=== PATIENT | female | born 1970 | race Caucasian/White ===

== ENCOUNTER → 2019-12-11 | Day surgery (SDC) | payer BC, OTHER ==
[2019-12-08 14:38] VITALS: BMI 42.0
--- NOTE | 2019-12-10 20:29 | P.HPOB ---
History of Present Illness H&P Date: 12/10/19 Chief Complaint: Family planning, unsuccessful IUD removal This is a 49-year-old female 8 para 1 who presents for laparoscopic bilateral tubal ligation via fulguration for family planning along with manual IUD removal due to embedded IUD. Patient underwent attempted removal of IUD in the office but was unable to tolerate removal. The IUD strings were visible however the IUD did not easily remove with pulling the strings. She will therefore undergo possible dilation and curettage to remove the IUD along with laparoscopic bilateral tubal ligation with fulguration for family planning. Obstetrical history: . History of 1 delivery and multiple m iscarriages. Gynecologic history: No history of sexual transmitted diseases. Her menses are occurring every 3 weeks and lasting 5-6 days. Social history: She is . She works at [employer]. Review of Systems Constitutional: Reports fatigue, Reports weight gain Eyes: denies blurred vision, denies pain Ears, nose, mouth and throat: Denies headache, Denies sore throat Cardiovascular: Denies chest pain, Denies shortness of breath Respiratory: Denies cough Gastrointestinal: Denies abdominal pain, Denies diarrhea, Denies nausea, Denies vomiting Genitourinary: Reports dysmenorrhea, Denies dysuria, Denies hematuria Musculoskeletal: Denies myalgias Integumentary: Denies pruritus, Denies rash Neurological: Denies numbness, Denies weakness Psychiatric: Reports anxiety, Reports change in libido, Reports depression, Reports difficulty concentrating, Reports irritability Hematologic/Lymphatic: Reports easy bruising Past Medical History Past Medical History: Asthma, Hyperlipidemia Additional Past Medical History / Comment(s): Dx. with asthma at age 32. Hx. of Antiphospholipid Syndrome. States has had no problems with blood clots. History of Any Multi-Drug Resistant Organisms: None Reported Past Surgical History: Section Additional Past Surgical History / Comment(s): D&C's Past Anesthesia/Blood Transfusion Reactions: No Reported Reaction Past Psychological History: Anxiety, Depression Smoking Status: Never smoker Past Alcohol Use History: Occasional Past Drug Use History: None Reported - Past Family History Mother Family Medical History: No Reported History Father Family Medical History: Cancer Additional Family Medical History / Comment(s): Liver Medications and Allergies Home Medications Medication Instructions Recorded Confirmed Type Cholecalciferol [Vitamin D3] 400 unit PO DAILY 12/08/19 12/08/19 History Cyanocobalamin (Vitamin B-12) 1,000 mcg PO DAILY 12/08/19 12/08/19 History [Vitamin B-12] DULoxetine HCL [Cymbalta] 60 mg PO DAILY 12/08/19 12/08/19 History Montelukast [Singulair] 10 mg PO DAILY 12/08/19 12/08/19 History Multivitamins, Thera [Multivitamin 1 tab PO DAILY 12/08/19 12/08/19 History (formulary)] Allergies Allergy/AdvReac Type Severity Reaction Status Date / Time heparin Allergy Rash/Hives Verified 12/08/19 14:26 Exam Osteopathic Statement: *. No significant issues noted on an osteopathic structural exam other than those noted in the History and Physical/Consult. HEENT is within normal limits Heart: Regular rate and rhythm Lungs: Clear to auscultation bilaterally Abdomen: Soft, nontender Pelvic exam: Cervix is visible with IUD strings visible. Uterus is anteverted, nontender, with no adnexal masses or tenderness palpated. Extremities: Negative Homans. Assessment and Plan (1) Encounter for IUD removal Status: Acute Code(s): Z30.432 - ENCOUNTER FOR REMOVAL OF INTRAUTERINE CONTRACEPTIVE DEVICE SNOMED Code(s): 450923601 (2) Family planning Status: Acute Code(s): Z30.09 - ENCOUNTER FOR OTH GENERAL CNSL AND ADVICE ON CONTRACEPTION SNOMED Code(s): 026219813 Plan: Will proceed with IUD removal with possible dilation and curettage to facilitate IUD removal and laparoscopic bilateral tubal ligation via fulguration. I have discussed the risks, benefits, and alternative therapies for the above- mentioned procedure and for both sedation/anesthesia as well as necessary blood products administration, if indicated, as they pertain to this patient. The patient has indicated her understanding and acceptance of the risks and procedures discussed.
[~2019-12-11] MED LIST: BUPIVACAINE (PF) 0.25% 30 ML VIAL SQ ONE; DEXAMETHASONE SOD PHOS (MDV) 100 MG/10 ML VIAL IVP ONE; GLYCOPYRROLATE 0.2 MG/ML 2 ML VIAL ONE; HYDROmorphone 0.5 MG/0.5 ML SYRINGE IVP PRN; IV FLUID CONTINUATION 1,000 ML IV ONE; KETOROLAC 30 MG/ML 1 ML VIAL ONE; LACTATED RINGERS 1,000 ML IV ONE; LACTATED RINGERS 1,000 ML IV SCH; LIDOCAINE 1% (10MG/ML) FOR IV START INTRADERMA PRN; MIDAZOLAM 2 MG/2 ML VIAL ONE; NEOSTIGMINE 1 MG/ML 10 ML VIAL ONE; ONDANSETRON 4 MG/2 ML VIAL IVP ONE; PROPOFOL 10 MG/ML 20 ML VIAL IV ONE; Pre Op ABX Message 1 EACH MISC MISCELLANE ONE; ROCURONIUM BROMIDE 10 MG/ML 5 ML VIAL IV ONE; SCOPOLAMINE 1.5MG/72HR PATCH TRANSDERM ONE; SUCCINYLCHOLINE CHLORIDE 100 MG/5 ML SYR IV ONE; fentaNYL (PF) 50 MCG/ML 2 ML AMP ONE
--- NOTE | 2019-12-11 08:24 | P.OP ---
Date of Procedure: 12/11/19 Preoperative Diagnosis: Family planning Retained IUD Postoperative Diagnosis: Same Procedure(s) Performed: Dilation and curettage with IUD removal Laparoscopic bilateral tubal ligation via fulguration Anesthesia: KELLY Surgeon: Camryn Vang Estimated Blood Loss (ml): 10 Pathology: other (Endometrial curettings) Condition: stable Disposition: same day Indications for Procedure: This is a 49-year-old female 8 para 1 who presents for laparoscopic bilateral tubal ligation via fulguration for family planning along with manual IUD removal due to embedded IUD. Patient underwent attempted removal of IUD in the office but was unable to tolerate removal. The IUD strings were visible however the IUD did not easily remove with pulling the strings. She will therefore undergo possible dilation and curettage to remove the IUD along with laparoscopic bilateral tubal ligation with fulguration for family planning. Operative Findings: Uterus is normal size. Old tubes and ovaries appear normal. There is an adhesion from the lower uterine segment of the uterus to the anterior abdominal wall. There is also an omental adhesion to the anterior abdominal wall right over the uterus. IUD was adherent at the end with the strings. IUD was removed intact. Description of Procedure: The patient is taken to the operating room where she is placed in the dorsal lithotomy position. She is prepped and draped in the normal sterile fashion. Her bladder is drained with catheter. Examination is performed under anesthesia. Uterus is found to be small, anteverted, no adnexal masses palpated. Next a weighted speculum was placed in the patient's vagina and a right angle retractor was used to visualize the cervix. The anterior lip of the cervix is grasped with a single-tooth tenaculum. The IUD strings are visualized. Attempt to grasp the strings and pulled the IUD out failed. It was noted to be fairly adherent. Next the cervix is gently dilated with Ayers dilators and the uterus is sounded to 9 cm. Next the Kevorkian curette was gently placed within the cervix and with a gentle twisting motion the T portion of the IUD is delivered through the cervix. The end of the cervix with the strings is still attached. This is gently pulled with a ring forcep and did release removing the IUD intact along with the strings. The IUD is removed from the field. Gentle curettage is performed with a small curet. Minimal tissue is obtained. Next a kroner uterine manipulator is inserted through the cervix and the balloon is inflated. Single-tooth tenaculum is removed all speculums are removed. Gloves are changed and attention is turned to the abdomen. A small stab incision was made with a scalpel in the infraumbilical fold. A towel clip was placed above the umbilicus for retraction. A 5 mm disposable bladeless trocar was then inserted into the peritoneal cavity under direct visualization. Once inside, pneumoperitoneum was achieved with CO2 gas. The insert was removed and the camera was placed. Intraperitoneal placement was confirmed. No bleeding was noted. Next the patient was placed in Trendelenburg position. A small stab incision was made suprapubically and a 5 mm disposable bladeless trocar was inserted into the peritoneal cavity under direct visualization. Once inside pelvic contents were inspected. Next a bipolar Kleppinger instrument was placed through the inferior trocar and the midportion of each tube was brought away from other structures and completely fulgurated on approximate 2-3 cm segment of each tube. Excellent hemostasis was noted. Pictures were taken. Pneumoperitoneum was released after the inferior trocar was removed under direct visualization. The upper trocar was then removed. The skin incisions were then closed with 4-0 Vicryl suture in a subcuticular fa shion. Incisions were then injected with quarter percent Marcaine. Approximately 7 mL were used. Next the kroner uterine manipulator was removed. Minimal bleeding was noted. All sponge and needle counts are correct. The patient is then taken to recovery room in stable condition.
[2019-12-11 08:43] VITALS: TEMP 96.8
[2019-12-11 09:03] VITALS: RESP 16
[2019-12-11 09:59] VITALS: BP 138/85; PULSE 73
== END | disposition home or self-care (01) ==
LOC: OR 06:17
PROVIDERS: ATTEND Obstetrics & Gynecology
DX: Z30.2 Encounter for sterilization (principal); Z30.432 Encounter for removal of intrauterine contraceptive device; N87.9 Dysplasia of cervix uteri, unspecified; N73.6 Female pelvic peritoneal adhesions (postinfective); J45.909 Unspecified asthma, uncomplicated; E78.5 Hyperlipidemia, unspecified; D68.61 Antiphospholipid syndrome; F41.9 Anxiety disorder, unspecified; F32.9 Major depressive disorder, single episode, unspecified; Z88.8 Allergy status to other drugs, medicaments and biological substances; Z98.890 Other specified postprocedural states; Z79.899 Other long term (current) drug therapy; Z91.89 Other specified personal risk factors, not elsewhere classified; Z80.0 Family history of malignant neoplasm of digestive organs
CPT/HCPCS: 58120; 58301; 58670; 81025; 88305; J2250; J2710; J2405; J3010; J1885; J1100; J0330; J2704

== ENCOUNTER → 2021-01-24 | Outpatient (CLI) | payer BC | END | disposition home or self-care (01) | LOC: LABWHC1 13:14 | PROVIDERS: ATTEND Family Medicine | DX: Z20.822 Contact with and (suspected) exposure to COVID-19 (principal) | CPT/HCPCS: U0003; C9803; U0005 ==

== ENCOUNTER → 2022-09-11 | Outpatient (CLI) | payer BC | END | disposition home or self-care (01) | LOC: RADCTMAIN 16:57 | PROVIDERS: ATTEND Family Medicine | DX: Z53.9 Procedure and treatment not carried out, unspecified reason (principal) ==

== ENCOUNTER → 2022-09-11 | Outpatient (CLI) | payer BC ==
--- NOTE | 2022-09-11 21:16 | CT ---
EXAMINATION TYPE: CT neck chest w con DATE OF EXAM: 09/11/2022 COMPARISON: NONE HISTORY: lymphadenopathy CT DLP: 1416.9 mGycm. Automated Exposure Control for Dose Reduction was Utilized. TECHNIQUE: CT scan of the neck and thorax are performed following with IV Contrast, patient injected with 100ML mL of Isovue 300. FINDINGS: Neck: Airway: No gross abnormality seen. Parotid/submandibular glands: No gross abnormality seen. Carotid/Vascular Structures: No significant abnormality. Osseous Structures: Mild to moderate disc space narrowing and mild spurring C6-C7 level Other: A few prominent but subcentimeter lymph nodes are scattered throughout the neck bilaterally. N o suspicious greater than 1.0 cm neck adenopathy is seen. The parapharyngeal fat spaces are maintained bilaterally on axial image 51. Chest: LUNGS: The lungs are grossly clear, there is no concerning parenchymal mass or nodule identified. T here is no pleural effusion or pneumothorax seen. The tracheobronchial tree is patent. MEDIASTINUM: There are no greater than 1 cm hilar or mediastinal lymph nodes. No cardiomegaly or pe ricardial effusion is seen. OTHER: A few subcentimeter lymph nodes in the bilateral axillary region. No suspicious greater than 1 .0 cm axillary adenopathy. Apel-ij-feuxpusp multilevel spurring in the thoracic spine is seen. IMPRESSION: No abnormal enlarged lymph nodes in the thorax or neck are identified. No suspicious mass es are present.
== END | disposition home or self-care (01) ==
LOC: RADCTMAIN 16:52
PROVIDERS: ATTEND Internal Medicine Rheumatology
DX: R59.0 Localized enlarged lymph nodes (principal)
CPT/HCPCS: 70491; 71260; Q9967